=== PATIENT | female | born 1945 | race Hispanic/Latino ===

== ENCOUNTER 2019-07-04 09:24 | Emergency (ER) | payer MEDICARE ==
[2019-07-05] MEDS ORDERED: DIGO0.12 PO (06:33)
[2019-07-05] MEDS ORDERED: ESCI10TA54 PO (06:33)
[2019-07-05] MEDS ORDERED: ISOS10TA8 PO (06:33)
[2019-07-05] MEDS ORDERED: FENO145T37 PO (06:33)
[2019-07-05] MEDS ORDERED: SOTA80TA PO (06:33)
[2019-07-05] MEDS ORDERED: ESOM40CA54 PO (06:33)
[2019-07-05] MEDS ORDERED: CHOL200026 PO (06:33)
[2019-07-05] MEDS ORDERED: FURO20TA4 PO (06:33)
[2019-07-05] MEDS ORDERED: POTA10CA44 PO (06:33)
[2019-07-05] MEDS ORDERED: WARF-57 PO (06:33)
[2019-07-05] MEDS ORDERED: SIMV80TA91 PO (06:33)
== END 2019-07-04 10:51 | disposition home or self-care (01) ==
LOC: EDH 09:24
DX: S00.83XA Contusion of other part of head, initial encounter (principal); S80.02XA Contusion of left knee, initial encounter; S60.221A Contusion of right hand, initial encounter; I10 Essential (primary) hypertension; E78.5 Hyperlipidemia, unspecified; F32.9 Major depressive disorder, single episode, unspecified; Z79.899 Other long term (current) drug therapy; W01.0XXA Fall on same level from slipping, tripping and stumbling without subsequent striking against object, initial encounter; Y93.89 Activity, other specified; Y92.89 Other specified places as the place of occurrence of the external cause; Y99.8 Other external cause status
CPT/HCPCS: 70450; 72125

== ENCOUNTER 2019-07-05 05:30 | Day surgery (SDC) | payer MEDICARE ==
[~2019-07-05] VITALS: Ht 147.3 cm; Wt 59.4 kg
[2019-07-05] MEDS ORDERED: SODIUM CHLORIDE 0.9% 1000ML 1,000 ML IV ONE (05:35)
[2019-07-05 05:48] VITALS: BP 146/71
[2019-07-05 06:15] LABS: INR 3.03 (0.85-1.15); PROTHROMBIN TIME 31.1 SEC (9.6-11.6)
[2019-07-05] MEDS ORDERED: ESCI10TA54 PO (06:33)
[2019-07-05] MEDS ORDERED: SIMV80TA91 PO (06:33)
[2019-07-05] MEDS ORDERED: DIGO0.12 PO (06:33)
[2019-07-05] MEDS ORDERED: ISOS10TA8 PO (06:33)
[2019-07-05] MEDS ORDERED: FURO20TA4 PO (06:33)
[2019-07-05] MEDS ORDERED: SOTA80TA PO (06:33)
[2019-07-05] MEDS ORDERED: CHOL200026 PO (06:33)
[2019-07-05] MEDS ORDERED: WARF-57 PO (06:33)
[2019-07-05] MEDS ORDERED: POTA10CA44 PO (06:33)
[2019-07-05] MEDS ORDERED: FENO145T37 PO (06:33)
[2019-07-05] MEDS ORDERED: ESOM40CA54 PO (06:33)
[2019-07-05] MEDS ORDERED: PROPOFOL 10 MG/ML 20ML VIAL IV ONE ×2 (06:37→06:38)
[2019-07-05] MEDS ORDERED: GLYCOPYRROLATE 0.2 MG/ML 5 ML VIAL ONE (06:38)
[2019-07-05] MEDS ORDERED: LIDOCAINE HCL 1% 20 ML VIAL ONE (06:38)
[2019-07-05 06:54] VITALS: BP 150/64
[2019-07-05 07:02] VITALS: BP 150/70
[2019-07-24] MEDS ORDERED: HYDR-4060 PO (16:09)
[2019-07-24] MEDS ORDERED: SUCR1TAB2 PO (16:09)
[2019-07-24] MEDS ORDERED: PHYT5TAB PO (16:09)
== END 2019-07-05 07:16 | disposition home or self-care (01) ==
LOC: DAH 05:30 → ENDO 05:30
PROVIDERS: ATTEND Internal Medicine
DX: R10.11 Right upper quadrant pain (principal); Z53.8 Procedure and treatment not carried out for other reasons; R93.3 Abnormal findings on diagnostic imaging of other parts of digestive tract; I48.91 Unspecified atrial fibrillation; E78.5 Hyperlipidemia, unspecified; I11.0 Hypertensive heart disease with heart failure; I50.23 Acute on chronic systolic (congestive) heart failure; I25.10 Atherosclerotic heart disease of native coronary artery without angina pectoris; I25.2 Old myocardial infarction; Z95.5 Presence of coronary angioplasty implant and graft; Z90.710 Acquired absence of both cervix and uterus; Z98.49 Cataract extraction status, unspecified eye; Z79.899 Other long term (current) drug therapy; Z88.8 Allergy status to other drugs, medicaments and biological substances; Z98.890 Other specified postprocedural states
CPT/HCPCS: 36415; 85610; A4606; J2704 ×2; J7030; J3490

== ENCOUNTER 2019-07-26 05:26 | Day surgery (SDC) | payer MEDICARE ==
[~2019-07-26] VITALS: Ht 152.4 cm; Wt 59.4 kg
[2019-07-26] VITALS (15 sets, daily range): BP systolic 77–170; BP diastolic 46–87
[~2019-07-26 05:26] MED LIST: CHOL200026 PO; DIGO0.12 PO; ESCI10TA54 PO; ESOM40CA54 PO; FENO145T37 PO; FURO20TA4 PO; HYDR-4060 PO; ISOS10TA8 PO; PHYT5TAB PO; POTA10CA44 PO; SIMV80TA91 PO; SOTA80TA PO; SUCR1TAB2 PO; WARF-57 PO
[2019-07-26 05:59] LABS: BASOPHILS % (AUTO) 0.6 % (0.0-5.0); EOSINOPHILS % (AUTO) 1.9 % (0.0-8.0); HEMATOCRIT 30.3 % (36-48); LYMPHOCYTES % (AUTO) 23.6 % (21.0-51.0); MEAN CORPUSCULAR HEMOGLOBIN 34.1 pg (27.0-33.0); MEAN CORPUSCULAR HGB CONC 34.6 g/dL (32.0-36.0); MEAN CORPUSCULAR VOLUME 98.6 fL (79-99); MONOCYTES % (AUTO) 19.2 % (3.0-13.0); NEUTROPHILS % (AUTO) 54.7 % (40.0-77.0); PLATELET COUNT (AUTO) 260 K/uL (130-400); RED BLOOD CELL COUNT(AUTO) 3.07 MIL/uL (4.00-5.50); RED CELL DISTRIBUTION WIDTH 15.6 % (11.0-15.5); WHITE BLOOD COUNT (AUTO) 6.9 K/uL (4.8-10.8)
[2019-07-26 06:08] LABS: CREATININE 1.1 mg/dL (0.5-1.5); POTASSIUM 5.1 mmol/L (3.5-5.1)
[2019-07-26 06:10] LABS: INR 1.44 (0.85-1.15)
[2019-07-26 06:14] LABS: ALBUMIN 2.3 g/dL (3.5-5.0); BILIRUBIN,TOTAL 2.7 mg/dL (0.2-1.0); TOTAL PROTEIN, SERUM 6.4 g/dL (6.0-8.3)
[2019-07-26] MEDS ORDERED: INDOMETHACIN 50 MG SUPP.RECT RC SCH (06:15)
[2019-07-26] MEDS ORDERED: SODIUM CHLORIDE 0.9% 1000ML 1,000 ML IV ONE (06:35)
[2019-07-26] MEDS ORDERED: SUCCINYLCHOLINE 200MG/10ML SYR ONE (06:43)
[2019-07-26] MEDS ORDERED: PROPOFOL 10 MG/ML 20ML VIAL IV ONE (06:43)
[2019-07-26] MEDS ORDERED: IOHEXOL-350 50ML VIAL IV ONE (06:55)
== END 2019-07-26 09:20 | disposition home or self-care (01) ==
LOC: DAH 05:26 → ENDO 05:26
PROVIDERS: ATTEND Internal Medicine
DX: K83.1 Obstruction of bile duct (principal); E78.5 Hyperlipidemia, unspecified; I11.0 Hypertensive heart disease with heart failure; I50.23 Acute on chronic systolic (congestive) heart failure; I25.10 Atherosclerotic heart disease of native coronary artery without angina pectoris; I48.91 Unspecified atrial fibrillation; I25.2 Old myocardial infarction; Z79.899 Other long term (current) drug therapy; Z85.528 Personal history of other malignant neoplasm of kidney; Z90.710 Acquired absence of both cervix and uterus; Z98.49 Cataract extraction status, unspecified eye; Z90.5 Acquired absence of kidney; Z88.8 Allergy status to other drugs, medicaments and biological substances; Z79.01 Long term (current) use of anticoagulants; Z82.49 Family history of ischemic heart disease and other diseases of the circulatory system; Z83.3 Family history of diabetes mellitus
CPT/HCPCS: 36415; 43274; 74328; 74330; 80053; 82948; 85025; 85610; A4606; C1769; C1773; C2625; J0330; J2704; J7030; Q9967

== ENCOUNTER 2019-09-26 07:50 | Day surgery (SDC) | payer MEDICARE ==
[~2019-09-26] VITALS: Ht 149.9 cm; Wt 57.2 kg
[2019-09-26] VITALS (15 sets, daily range): BP systolic 124–144; BP diastolic 59–75
[~2019-09-26 07:50] MED LIST changes: +IOHEXOL-350 50ML VIAL IV ONE; +SODIUM CHLORIDE 0.9% 1000ML 1,000 ML IV ONE; -WARF-57 PO
[2019-09-26] MEDS ORDERED: METO50TA18 PO (09:20)
[2019-09-26] MEDS ORDERED: APIX5TAB PO (09:20)
[2019-09-26 09:39] LABS: CREATININE 0.9 mg/dL (0.5-1.5); POTASSIUM 4.7 mmol/L (3.5-5.1)
[2019-09-26 09:41] LABS: INR 1.33 (0.85-1.15); PROTHROMBIN TIME 13.8 SEC (9.6-11.6)
[2019-09-26 09:44] LABS: BILIRUBIN,TOTAL 1.1 mg/dL (0.2-1.0); TOTAL PROTEIN, SERUM 5.2 g/dL (6.0-8.3)
[2019-09-26] MEDS ORDERED: INDOMETHACIN 50 MG SUPP.RECT RC SCH (09:45)
[2019-09-26] MEDS ORDERED: IOHEXOL-350 50ML VIAL IV ONE (11:18)
[2019-09-26] MEDS ORDERED: LIDOCAINE PF 2% 5ML ABBOJECT ONE (11:21)
[2019-09-26] MEDS ORDERED: SUCCINYLCHOLINE 200MG/10ML SYR ONE (11:21)
[2019-09-26] MEDS ORDERED: MIDAZOLAM HCL 1 MG/ML 2ML VIAL ONE (11:21)
[2019-09-26] MEDS ORDERED: PROPOFOL 10 MG/ML 20ML VIAL IV ONE (11:21)
[2019-09-26] MEDS ORDERED: FENTANYL CITRATE PF 50 MCG/1 ML 2ML VIAL ONE (11:22)
[2019-09-26] MEDS ORDERED: PHENYLEPHRINE HCL 10 MG/ML 1ML VIAL IV ONE (11:41)
== END 2019-09-26 13:27 | disposition home or self-care (01) ==
LOC: ENDO 07:50 → DAH 07:50 → ENDO 13:27
PROVIDERS: ATTEND Internal Medicine
DX: K83.1 Obstruction of bile duct (principal); C25.9 Malignant neoplasm of pancreas, unspecified; R94.5 Abnormal results of liver function studies; I11.0 Hypertensive heart disease with heart failure; I50.23 Acute on chronic systolic (congestive) heart failure; I48.91 Unspecified atrial fibrillation; E78.5 Hyperlipidemia, unspecified; I25.2 Old myocardial infarction; Z95.5 Presence of coronary angioplasty implant and graft; Z90.710 Acquired absence of both cervix and uterus; Z98.49 Cataract extraction status, unspecified eye; Z90.5 Acquired absence of kidney; Z79.899 Other long term (current) drug therapy
CPT/HCPCS: 36415; 43264; 43276; 74328; 80053; 85610; A4215; A4221; A4222; A4223; A4606; A4663; C1769; C1773; C2625; J0330; J2001; J2250; J2370; J2704; J3010; J7030; Q9967; 74330